=== PATIENT | female | born 1980 | race Hispanic/Latino ===

== ENCOUNTER 2020-08-30 08:20 | Emergency (ER) | payer MEDICAID, OTHER ==
[2020-08-30 09:36] LABS: BASOPHILS % (AUTO) 0.4 % (0.0-5.0); EOSINOPHILS % (AUTO) 2.2 % (0.0-8.0); HEMATOCRIT 30.9 % (36-48); LYMPHOCYTES % (AUTO) 12.6 % (21.0-51.0); MEAN CORPUSCULAR HEMOGLOBIN 21.5 pg (27.0-33.0); MEAN CORPUSCULAR HGB CONC 29.8 g/dL (32.0-36.0); MEAN CORPUSCULAR VOLUME 72.2 fL (79-99); MONOCYTES % (AUTO) 4.9 % (3.0-13.0); NEUTROPHILS % (AUTO) 79.6 % (40.0-77.0); PLATELET COUNT (AUTO) 431 K/uL (130-400); RED BLOOD CELL COUNT(AUTO) 4.28 MIL/uL (4.00-5.50); RED CELL DISTRIBUTION WIDTH 15.5 % (11.0-15.5); WHITE BLOOD COUNT (AUTO) 6.7 K/uL (4.8-10.8)
[2020-08-30 09:45] LABS: CREATININE 0.7 mg/dL (0.5-1.5); POTASSIUM 4.6 mmol/L (3.5-5.1)
[2020-08-30 09:47] LABS: INR 1.11 (0.85-1.15)
[2020-08-30 09:49] LABS: ALBUMIN 3.9 g/dL (3.5-5.0); BILIRUBIN,TOTAL 0.7 mg/dL (0.2-1.0); PARTIAL THROMBOPLASTIN TIME 25.9 SEC (26.3-35.5)
== END 2020-08-30 11:24 | disposition home or self-care (01) ==
LOC: EDH 08:20
DX: F41.8 Other specified anxiety disorders (principal); Z98.890 Other specified postprocedural states
CPT/HCPCS: 36415; 70450; 71045; 80053; 82550; 84443; 84484; 85025; 85610; 85730; 93005

== ENCOUNTER 2021-04-29 20:44 | Emergency (ER) | payer OTHER ==
[~2021-04-29] VITALS: Ht 152.4 cm; Wt 59.0 kg
[2021-04-29] MEDS ORDERED: HYDROCODONE/ACETAMINOPHEN 5/325 MG TAB PO ONE (21:30)
[2021-04-29] MEDS ORDERED: CYCLOBENZAPRINE HCL 10 MG TABLET PO ONE (21:30)
[2021-04-29] MEDS ORDERED: KETOROLAC 60 MG VIAL (30MG/ML) IM ONE (21:30)
[2021-04-29] MEDS ORDERED: MAGNESIUM CITRATE 296 ML SOLUTION PO ONE (22:00)
[2021-04-29] MEDS ORDERED: LACTULOSE 20 GM/30 ML UDCUP PO ONE (22:00)
[2021-04-29 23:01] LABS: APPEARANCE,URINE Clear (CLEAR); BILIRUBIN,URINE Negative (NEGATIVE); COLOR,URINE Yellow (YELLOW); GLUCOSE, URINE (UA) Negative (NEGATIVE); KETONES,URINE Negative (NEGATIVE); LEUKOCYTE ESTERASE ,URINE Small (NEGATIVE); NITRATE,URINE Positive (NEGATIVE); OCCULT BLOOD,URINE Negative (NEGATIVE); PH,URINE 6.5 (5.0-8.0); PROTEIN,URINE Negative (NEGATIVE); UROBILINOGEN,URINE 0.2 mg/dL (0.2-1.0)
[2021-04-29 23:13] LABS: BACTERIA,URINE Moderate /HPF (None Seen); RBC,URINE 0-1 /HPF (0-1)
[2021-04-29] MEDS ORDERED: CEPH500B PO (23:20)
[2021-04-29] MEDS ORDERED: NAPR-1180 PO (23:20)
[2021-04-29] MEDS ORDERED: LACT10PA5 PO (23:20)
[2021-04-29] MEDS ORDERED: CYCL10TA16 PO (23:20)
[2021-04-29] MEDS ORDERED: CEFTRIAXONE 1G VIAL IVP ONE (23:30)
[2021-04-30] VITALS: BP 120/55
== END 2021-04-30 00:05 | disposition home or self-care (01) ==
LOC: EDH 20:44
DX: N39.0 Urinary tract infection, site not specified (principal); K59.00 Constipation, unspecified; M54.50 Low back pain, unspecified; Z79.1 Long term (current) use of non-steroidal anti-inflammatories (NSAID)
CPT/HCPCS: 72100; 81001; 87077; 87088; 87186; 96372; 96374; 99284; J0696; J1885

== ENCOUNTER 2022-06-05 08:34 | Emergency (ER) | payer OTHER ==
[~2022-06-05] VITALS: Ht 152.4 cm; Wt 59.0 kg
[~2022-06-05 08:34] MED LIST: CEPH500B PO; CYCL10TA16 PO; LACT10PA5 PO; NAPR-1180 PO
[2022-06-05] MEDS ORDERED: 0.9%NACL 1000ML 1,000 ML IV ONE (09:00)
[2022-06-05 09:06] LABS: BASOPHILS % (AUTO) 0.5 % (0.0-5.0); EOSINOPHILS % (AUTO) 2.1 % (0.0-8.0); HEMATOCRIT 30.4 % (36-48); LYMPHOCYTES % (AUTO) 38.4 % (21.0-51.0); MEAN CORPUSCULAR HEMOGLOBIN 23.8 pg (27.0-33.0); MEAN CORPUSCULAR HGB CONC 31.3 g/dL (32.0-36.0); MEAN CORPUSCULAR VOLUME 76.2 fL (79-99); MONOCYTES % (AUTO) 8.4 % (3.0-13.0); NEUTROPHILS % (AUTO) 50.3 % (40.0-77.0); PLATELET COUNT (AUTO) 329 K/uL (130-400); RED BLOOD CELL COUNT(AUTO) 3.99 MIL/uL (4.00-5.50); RED CELL DISTRIBUTION WIDTH 14.8 % (11.0-15.5); WHITE BLOOD COUNT (AUTO) 6.3 K/uL (4.8-10.8)
[2022-06-05 09:17] LABS: CREATININE 0.8 mg/dL (0.5-1.5); POTASSIUM 3.1 mmol/L (3.5-5.1)
[2022-06-05 09:21] LABS: ALBUMIN 3.6 g/dL (3.5-5.0); TOTAL PROTEIN, SERUM 7.5 g/dL (6.0-8.3)
[2022-06-05] MEDS ORDERED: POTASSIUM BICARB/CIT AC 25 MEQ TABLET.EFF PO STA (09:56)
[2022-06-05 10:49] LABS: APPEARANCE,URINE CLOUDY (CLEAR); BILIRUBIN,URINE NEGATIVE (NEGATIVE); COLOR,URINE LIGHT-YELLOW (YELLOW); GLUCOSE, URINE (UA) NEGATIVE (NEGATIVE); KETONES,URINE NEGATIVE (NEGATIVE); LEUKOCYTE ESTERASE ,URINE 500 Leu/uL (NEGATIVE); NITRATE,URINE 2+ (NEGATIVE); OCCULT BLOOD,URINE NEGATIVE (NEGATIVE); PROTEIN,URINE NEGATIVE (NEGATIVE); UROBILINOGEN,URINE 0.2 mg/dL (0.2-1.0)
[2022-06-05 10:52] LABS: AMPHET/METH SCREEN,URINE NEGATIVE (NEGATIVE); BARBITURATE SCREEN, URINE NEGATIVE (NEGATIVE); BENZODIAZEPINES SCREEN,URINE NEGATIVE (NEGATIVE); CANNABINOID SCREEN,URINE NEGATIVE (NEGATIVE); COCAINE SCREEN,URINE NEGATIVE (NEGATIVE); HCG,QUALITATIVE URINE NEGATIVE (NEGATIVE); OPIATE SCREEN,URINE NEGATIVE (NEGATIVE); PHENCYCLIDINE SCREEN,URINE NEGATIVE (NEGATIVE)
[2022-06-05 11:18] LABS: BACTERIA,URINE MANY /HPF (None Seen); MUCUS,URINE FEW LPF (None Seen); RBC,URINE 0-1 /HPF (0-1); SQUAMOUS EPITHELIAL CELL,UR FEW /HPF (0-2); TRANSITIONAL EPI CELLS,URINE RARE /HPF (None Seen); WBC,URINE 51-100 /HPF (0-1)
[2022-06-05] MEDS ORDERED: MAG/ALUM/SIMETH 30 ML UDCUP PO ONE (11:30)
[2022-06-05] MEDS ORDERED: LIDOCAINE HCL 2% VISCOUS 15 ML UDCUP PO ONE (11:30)
[2022-06-05 11:36] VITALS: BP 117/69
[2022-06-05] MEDS ORDERED: CEPH500B PO (11:46)
[2022-06-05] MEDS ORDERED: DOCU-116 PO (11:46)
[2022-06-05] MEDS ORDERED: FERR324T4 PO (11:46)
[2022-06-05] MEDS ORDERED: PANT40TA55 PO (11:46)
== END 2022-06-05 12:04 | disposition home or self-care (01) ==
LOC: EDH 08:34
DX: D64.9 Anemia, unspecified (principal); K21.9 Gastro-esophageal reflux disease without esophagitis; N39.0 Urinary tract infection, site not specified; Z79.1 Long term (current) use of non-steroidal anti-inflammatories (NSAID); Z79.899 Other long term (current) drug therapy
CPT/HCPCS: 99285; 96360; 71045; 82270; 82550; 84484; 80053; 80305; 85025; 87077; 87088; 87186; 81025; 36415; 93005; 81001; J7030

== ENCOUNTER 2022-10-18 16:57 | Emergency (ER) | payer OTHER ==
[~2022-10-18] VITALS: Ht 149.9 cm; Wt 65.8 kg
[~2022-10-18 16:57] MED LIST changes: +DOCU-116 PO; +FERR324T4 PO; +PANT40TA55 PO
[2022-10-18 17:37] LABS: BASOPHILS % (AUTO) 0.3 % (0.0-5.0); EOSINOPHILS % (AUTO) 0.8 % (0.0-8.0); LYMPHOCYTES % (AUTO) 26.4 % (21.0-51.0); MEAN CORPUSCULAR HGB CONC 33.4 g/dL (32.0-36.0); MEAN CORPUSCULAR VOLUME 83.8 fL (79-99); MONOCYTES % (AUTO) 8.9 % (3.0-13.0); NEUTROPHILS % (AUTO) 63.3 % (40.0-77.0); PLATELET COUNT (AUTO) 309 K/uL (130-400); RED BLOOD CELL COUNT(AUTO) 4.89 MIL/uL (4.00-5.50); WHITE BLOOD COUNT (AUTO) 6.6 K/uL (4.8-10.8)
[2022-10-18 17:54] LABS: CREATININE 0.7 mg/dL (0.5-1.5); POTASSIUM 3.5 mmol/L (3.5-5.1)
[2022-10-18 18:04] LABS: ALBUMIN 4.3 g/dL (3.5-5.0); TOTAL PROTEIN, SERUM 8.4 g/dL (6.0-8.3)
[2022-10-18] MEDS ORDERED: ONDANSETRON 4MG INJ IVP ONE (18:30)
[2022-10-18] MEDS ORDERED: KETOROLAC 30MG VIAL (30MG/ML) IVP ONE (18:30)
[2022-10-18] MEDS ORDERED: 0.9%NACL 1000ML 1,000 ML IV ONE (18:30)
[2022-10-18 19:49] VITALS: BP 125/63
[2022-10-18] MEDS ORDERED: CEFD300C3 PO (20:29)
== END 2022-10-18 21:33 | disposition home or self-care (01) ==
LOC: EDH 16:57
DX: N39.0 Urinary tract infection, site not specified (principal); E86.0 Dehydration; M79.10 Myalgia, unspecified site; I10 Essential (primary) hypertension
CPT/HCPCS: 99284; 96374; 96361; 96375; 84484; 80053; 85025; 36415; 93005; J7030; J2405; J1885